=== PATIENT | female | born 1990 | race Two or more races ===

== ENCOUNTER 2022-08-06 04:54 | Emergency (ER) | payer SELFPAY ==
[~2022-08-06] VITALS: Ht 167.6 cm; Wt 68.0 kg
[2022-08-06 06:14] LABS: HEMATOCRIT. 37.4 % (36.0-48.0); HEMOGLOBIN. 12.6 g/dL (12.0-16.0); LYMPHOCYTES % 35.4 % (20.0-50.0); MEAN CORPUSCULAR HEMOGLOBIN 28.8 pg (28.0-32.0); MEAN CORPUSCULAR VOLUME 85.4 fL (81.0-99.0); MEAN PLATELET VOLUME 7.5 fl (7.4-10.4); MONOCYTES % 5.5 % (2.0-8.0); NEUTROPHILS % 57.1 % (40.0-76.0); PLATELET 344 x1000/uL (130-400); RED BLOOD CELL COUNT 4.38 mill/uL (4.2-5.4); RED CELL DISTRIBUTION WIDTH 13.9 % (11.6-14.6)
[2022-08-06] MEDS ORDERED: OLANZAPINE 10 MG/VIAL IM ONE (06:15)
[2022-08-06 06:24] LABS: CHLORIDE 102 mEq/L (98-107)
[2022-08-06 06:29] LABS: HCG SCREEN POSITIVE
[2022-08-06 06:33] LABS: ETHANOL BLOOD < 10 mg/dL
[2022-08-06 07:02] LABS: CLARITY URINE CLEAR (CLEAR); COLOR URINE YELLOW (YELLOW); PH URINE 6.5 (4.5-8.0); PROTEIN URINE NEGATIVE (NEGATIVE); SPECIFIC GRAVITY URINE 1.015 (1.005-1.030)
[2022-08-06 07:03] LABS: KETONES URINE TRACE (NEGATIVE)
[2022-08-06 07:04] LABS: NITRITE URINE POSITIVE (NEGATIVE); OCCULT BLOOD URINE 1+ (NEGATIVE)
[2022-08-06 07:05] LABS: LEUKOCYTE ESTERASE URINE 2+ (NEGATIVE)
[2022-08-06 07:24] LABS: *BARBITURATES SCREEN URINE NEGATIVE (NEGATIVE); *COCAINE SCREEN URINE NEGATIVE (NEGATIVE); CANNABINOID URINE SCREEN NEGATIVE (NEGATIVE); METHADONE URINE SCREEN NEGATIVE (NEGATIVE); OPIATES URINE SCREEN NEGATIVE (NEGATIVE); PHENCYCLIDINE URINE SCREEN NEGATIVE (NEGATIVE)
[2022-08-06 07:25] LABS: *AMPHETAMINES SCREEN URINE PRESUMTIVE POSITIVE (NEGATIVE); *BENZODIAZEPINES SCREEN URINE PRESUMTIVE POSITIVE (NEGATIVE)
[2022-08-06] MEDS: CEFTRIAXONE 2 G in DEXTROSE 5% WATER 50 ML IV SCH ×2 (09:00→11:15)
[2022-08-06 12:44] VITALS: BP 128/84
== END 2022-08-06 12:48 ==
LOC: ER 04:54
DX: O99.321 Drug use complicating pregnancy, first trimester (principal); T40.411A Poisoning by fentanyl or fentanyl analogs, accidental (unintentional), initial encounter; T50.7X1A Poisoning by analeptics and opioid receptor antagonists, accidental (unintentional), initial encounter; T43.641A Poisoning by ecstasy, accidental (unintentional), initial encounter; T42.4X1A Poisoning by benzodiazepines, accidental (unintentional), initial encounter; R41.82 Altered mental status, unspecified; F15.188 Other stimulant abuse with other stimulant-induced disorder; F11.188 Opioid abuse with other opioid-induced disorder; F16.188 Hallucinogen abuse with other hallucinogen-induced disorder; F13.188 Sedative, hypnotic or anxiolytic abuse with other sedative, hypnotic or anxiolytic-induced disorder; O23.41 Unspecified infection of urinary tract in pregnancy, first trimester; N39.0 Urinary tract infection, site not specified; Z3A.09 9 weeks gestation of pregnancy; Y92.89 Other specified places as the place of occurrence of the external cause
CPT/HCPCS: 36415; 76801; 80053; 80305; 80320; 81003; 82140; 84702; 84703; 85025; 86850; 86900; 86901; 93005; 96365; 96372; 99285; J0696; J3490; J7060; G0480

== ENCOUNTER 2022-08-21 12:07 | Emergency (ER) | payer MEDICAID, OTHER ==
[~2022-08-21] VITALS: Ht 160 cm; Wt 68.0 kg
[2022-08-21 12:28] VITALS: BP 99/69
[2022-08-22] MEDS ORDERED: TOPUD MT (04:35)
[2022-08-22] MEDS ORDERED: CEPH500C2 MT (04:35)
== END 2022-08-21 14:35 ==
LOC: ER 12:07
DX: O26.891 Other specified pregnancy related conditions, first trimester (principal); Z3A.01 Less than 8 weeks gestation of pregnancy; F11.90 Opioid use, unspecified, uncomplicated
CPT/HCPCS: 76815; 99283; 99284